=== PATIENT | male | born 1995 ===

== ENCOUNTER 2018-11-23 12:06 | Emergency (ER) | payer MEDICAID, OTHER ==
[~2018-11-23] VITALS: Ht 175.3 cm; Wt 113.4 kg
[2018-11-23 12:37] VITALS: BP 150/83
== END 2018-11-23 14:42 | disposition home or self-care (01) ==
LOC: ER 12:10
DX: J03.90 Acute tonsillitis, unspecified (principal); F41.9 Anxiety disorder, unspecified; Z76.0 Encounter for issue of repeat prescription